=== PATIENT | female | born 1965 | race Caucasian/White ===

== ENCOUNTER 2019-02-09 21:30 | Emergency (ER) | payer OTHER ==
[~2019-02-09] VITALS: Ht 162.6 cm; Wt 78.9 kg
[~2019-02-09 21:30] MED LIST: AMBIEN10 MG; DIOVAN HCT 320/1 TAB; HYDROCHLOROTHIA25 MG PO; LOTREL 5-10 MG1 CAP PO; NORVASC5 MG; TUSSI PRES-B L120 M1 PO; VERAPAMIL HCL120 M1; XANAX0.25 MG; XANAX0.25 MG PO; XOPENEX0.63 MG/3 IH; ZITHROMAX TRI-500 MG PO; ZOLOFT100 MG
[2019-02-09] MEDS ORDERED: ZANTAC300 MG (21:42)
[2019-02-09] MEDS ORDERED: CYMBALTA60 MG (21:42)
[2019-02-09] MEDS ORDERED: LIPITOR40 MG (21:43)
[2019-02-09] MEDS ORDERED: ATIVAN0.5 M1 (21:43)
[2019-02-09] MEDS ORDERED: RESTORIL30 M1 (21:43)
[2019-02-09] MEDS ORDERED: CALCIUM + D3 E1 EACH (21:44)
== END 2019-02-10 00:31 | disposition home or self-care (01) ==
LOC: ER 21:30
DX: J11.1 Influenza due to unidentified influenza virus with other respiratory manifestations (principal)

== ENCOUNTER 2019-06-04 11:10 | Outpatient (CLI) | payer OTHER ==
[~2019-06-04 11:10] MED LIST changes: +ATIVAN0.5 M1; +CALCIUM + D3 E1 EACH; +CYMBALTA60 MG; +LIPITOR40 MG; +RESTORIL30 M1; +ZANTAC300 MG
== END 2019-06-04 11:24 | disposition home or self-care (01) ==
LOC: SONOGRAMA 11:10
DX: M25.512 Pain in left shoulder (principal)